=== PATIENT | female | born 1995 | race Caucasian/White ===

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

== ENCOUNTER 2018-10-21 04:31 | Emergency (ER) | payer OTHER ==
[~2018-10-21] VITALS: Ht 162.6 cm; Wt 77.1 kg
[2018-10-21 04:43] VITALS: BP_SYST 129
[2018-10-21] MEDS ORDERED: ONDANSETRON 4 MG ODT TAB PO ONE ×2 (05:00→06:30)
[2018-10-21] MEDS ORDERED: PANTOPRAZOLE SODIUM 40 MG TAB PO ONE (06:30)
[2018-10-21] MEDS ORDERED: NACL 0.9% 1,000 ML IV ONE (06:45)
[2018-10-21 07:02] LABS: BASOPHILS # (AUTO) 0.1 K/uL (0.0-0.2); BASOPHILS % (AUTO) 0.6 % (0.0-2.0); EOSINOPHILS % (AUTO) 0.1 % (0.0-4.0); HEMATOCRIT 39.6 % (36-48); HEMOGLOBIN 13.1 g/dL (12.0-16.0); LYMPHOCYTES # (AUTO) 1.9 K/uL (1.0-5.5); LYMPHOCYTES % (AUTO) 17.1 % (20.5-51.5); MEAN CORPUSCULAR HEMOGLOBIN 28 pg (27-31); MEAN CORPUSCULAR HGB CONC 33 % (32-36); MEAN CORPUSCULAR VOLUME 85 fL (79.0-98.0); MONOCYTES # (AUTO) 0.4 K/uL (0.0-1.0); MONOCYTES % (AUTO) 3.1 % (1.7-9.3); NEUTROPHILS % (AUTO) 79.1 % (40.0-70.0); PLATELET COUNT (AUTO) 237 K/uL (130-430); RED BLOOD CELL COUNT(AUTO) 4.63 MIL/uL (4.2-6.2); RED CELL DISTRIBUTION WIDTH 14.5 % (9.0-15.0); WHITE BLOOD COUNT (AUTO) 11.3 K/uL (4.8-10.8)
[2018-10-21 07:14] LABS: CREATININE 0.83 mg/dL (0.55-1.30); POTASSIUM 3.4 mmol/L (3.5-5.1)
== END 2018-10-21 07:38 | disposition home or self-care (01) ==
LOC: SED 04:31
DX: K21.9 Gastro-esophageal reflux disease without esophagitis (principal); R11.2 Nausea with vomiting, unspecified
CPT/HCPCS: 36415; 70450; 80048; 81025; 85025; 96360; 99284; J7030; Q0162